=== PATIENT | male | born 1965 | race Hispanic/Latino ===

== ENCOUNTER 2018-09-28 17:04 | Inpatient (IN) | payer OTHER | END 2018-10-08 16:30 | disposition home or self-care (01) | LOC: EDH 17:04 → 4AH 09-29 04:06 → 3DH 10-05 18:31 → EDHIP 20:10 | PROC: 4A023N7 Measurement of Cardiac Sampling and Pressure, Left Heart, Percutaneous Approach (ICD-10-PCS; principal; ~2018-09-28) | PROC: B2111ZZ Fluoroscopy of Multiple Coronary Arteries using Low Osmolar Contrast (ICD-10-PCS; ~2018-09-28) | PROC: B2151ZZ Fluoroscopy of Left Heart using Low Osmolar Contrast (ICD-10-PCS; ~2018-09-28) | PROC: B4181ZZ Fluoroscopy of Bilateral Renal Arteries using Low Osmolar Contrast (ICD-10-PCS; ~2018-09-28) | DX: I50.43 Acute on chronic combined systolic (congestive) and diastolic (congestive) heart failure (principal); J18.9 Pneumonia, unspecified organism; I16.0 Hypertensive urgency; E11.65 Type 2 diabetes mellitus with hyperglycemia; I11.0 Hypertensive heart disease with heart failure; J98.01 Acute bronchospasm; E66.01 Morbid (severe) obesity due to excess calories ==

== ENCOUNTER 2020-09-19 12:23 | Inpatient (IN) | payer OTHER ==
[~2020-09-19] VITALS: Ht 188 cm; Wt 147.2 kg
[~2020-09-19 12:23] MED LIST: AMLO5TAB4 PO; ASPI-1005 PO; ATOR20TA65 PO; FURO40TA7 PO; GLIP5TAB11 PO; LEVO500T2 PO; LOSA100T2 PO; METF-444 PO; METO50 PO
[2020-09-19 13:15] LABS: BASOPHILS % (AUTO) 0.6 % (0.0-5.0); EOSINOPHILS % (AUTO) 3.1 % (0.0-8.0); HEMATOCRIT 39.8 % (42-54); LYMPHOCYTES % (AUTO) 22.3 % (21.0-51.0); MEAN CORPUSCULAR HEMOGLOBIN 20.6 pg (27.0-33.0); MEAN CORPUSCULAR HGB CONC 27.1 g/dL (32.0-36.0); MEAN CORPUSCULAR VOLUME 75.8 fL (79-99); MONOCYTES % (AUTO) 12.5 % (3.0-13.0); NEUTROPHILS % (AUTO) 61.2 % (40.0-77.0); PLATELET COUNT (AUTO) 264 K/uL (130-400); RED BLOOD CELL COUNT(AUTO) 5.25 MIL/uL (4.50-6.20); WHITE BLOOD COUNT (AUTO) 6.2 K/uL (4.8-10.8)
[2020-09-19 13:26] LABS: CREATININE 1.5 mg/dL (0.5-1.5); INR 1.21 (0.85-1.15); POTASSIUM 4.1 mmol/L (3.5-5.1)
[2020-09-19 13:28] LABS: PARTIAL THROMBOPLASTIN TIME 29.2 SEC (26.3-35.5)
[2020-09-19 13:31] LABS: ALBUMIN 2.8 g/dL (3.5-5.0); BILIRUBIN,TOTAL 0.6 mg/dL (0.2-1.0)
[2020-09-19] MEDS ORDERED: DEXTROSE 50%-WATER 50 ML DISP.SYRIN IV ONE ×3 (13:44→16:55)
[2020-09-19 13:46] LABS: B-TYPE NATRIURETIC PEPTIDE 773 pg/mL (0-100)
[2020-09-19] MEDS ORDERED: DEXTROSE 10%-WATER 1,000 ML IV ONE (14:50)
[2020-09-19] MEDS ORDERED: LIDOCAINE HCL-MPF 1% 2ML VIAL IV PRN ×2 (15:15)
[2020-09-19] MEDS ORDERED: GLUCAGON 1MG KIT 1 MG ML IM PRN (15:15)
[2020-09-19] MEDS ORDERED: POTASSIUM CHLORIDE 20 MEQ ERTAB PO PRN (15:15)
[2020-09-19] MEDS ORDERED: POTASSIUM CHLORIDE 10% ELIXIR 20 MEQ/15 ML UDCUP PO PRN ×2 (15:15)
[2020-09-19] MEDS ORDERED: POTASSIUM CHLORIDE 10MEQ/100ML 100 ML IV PRN (15:15)
[2020-09-19] MEDS ORDERED: DEXTROSE 50%-WATER 50 ML DISP.SYRIN IV PRN (15:15)
[2020-09-19] MEDS ORDERED: POTASSIUM CHLORIDE 20MEQ/100ML 100 ML IV PRN (15:15)
[2020-09-19] MEDS: DEXTROSE 10%-WATER 1,000 ML IV SCH (15:15)
[2020-09-19] MEDS: FUROSEMIDE 10 MG/ML 4ML VIAL IV SCH ×2 (15:15→23:13)
[2020-09-19] MEDS ORDERED: FUROSEMIDE 10 MG/ML 4ML VIAL ONE (15:33)
[2020-09-19] MEDS: LOSARTAN 50 MG TABLET PO SCH (16:39)
[2020-09-19 18:56] VITALS: BP 169/87
[2020-09-19] MEDS ORDERED: DOBUTAMINE HCL 1,000 MG in DEXTROSE 5%-WATER 250 ML IV SCH (20:00)
[2020-09-20] VITALS (7 sets, daily range): BP systolic 133–193; BP diastolic 62–119
[2020-09-20 01:31] LABS: MEAN CORPUSCULAR HEMOGLOBIN 20.7 pg (27.0-33.0); MEAN CORPUSCULAR HGB CONC 27.8 g/dL (32.0-36.0); MEAN CORPUSCULAR VOLUME 74.8 fL (79-99); RED BLOOD CELL COUNT(AUTO) 5.35 MIL/uL (4.50-6.20); RED CELL DISTRIBUTION WIDTH 19.1 % (11.0-15.5); WHITE BLOOD COUNT (AUTO) 7.6 K/uL (4.8-10.8)
[2020-09-20 01:46] LABS: ALBUMIN 2.9 g/dL (3.5-5.0); BILIRUBIN,TOTAL 0.7 mg/dL (0.2-1.0); CREATININE 1.4 mg/dL (0.5-1.5); MAGNESIUM 1.7 mg/dL (1.80-2.40); PHOSPHORUS 5.4 mg/dL (2.5-4.9); POTASSIUM 3.8 mmol/L (3.5-5.1); TOTAL PROTEIN, SERUM 7.3 g/dL (6.0-8.3)
[2020-09-20] MEDS ORDERED: POTA-9 PO (02:08)
[2020-09-20] MEDS ORDERED: DOXY25TA55 PO (02:08)
[2020-09-20] MEDS ORDERED: METO100T14 PO (02:08)
[2020-09-20] MEDS ORDERED: CLON0.1T PO (02:08)
[2020-09-20] MEDS: DEXTROSE 10%-WATER 1,000 ML IV SCH (03:43)
[2020-09-20] MEDS: FUROSEMIDE 10 MG/ML 4ML VIAL IV SCH (06:17)
[2020-09-20] MEDS: ENOXAPARIN SODIUM 40 MG/0.4 ML SYRINGE SQ SCH (09:18)
[2020-09-20] MEDS: LOSARTAN 50 MG TABLET PO SCH (09:18)
[2020-09-20] MEDS: ASPIRIN 81MG TAB.CHEW PO SCH (09:18)
[2020-09-20] MEDS: POTASSIUM CHLORIDE 20 MEQ ERTAB PO PRN (09:18)
[2020-09-20] MEDS ORDERED: MAGNESIUM 2GM PREMIX 50ML 50 ML IV PRN (09:30)
[2020-09-20] MEDS ORDERED: LOSARTAN 50 MG TABLET ONE (12:44)
[2020-09-20] MEDS ORDERED: LOSARTAN 50 MG TABLET PO SCH (12:45)
[2020-09-20] MEDS: ATORVASTATIN CALCIUM 20 MG TABLET PO SCH (20:01)
[2020-09-21] MEDS: FUROSEMIDE 10 MG/ML 4ML VIAL IV SCH ×3 (00:36→15:02)
[2020-09-21 03:35] VITALS: BP 158/81
[2020-09-21 06:26] LABS: CREATININE 1.1 mg/dL (0.5-1.5); MAGNESIUM 1.9 mg/dL (1.80-2.40); POTASSIUM 3.8 mmol/L (3.5-5.1)
[2020-09-21 08:00] VITALS: BP 174/79
[2020-09-21] MEDS: ENOXAPARIN SODIUM 40 MG/0.4 ML SYRINGE SQ SCH (08:35)
[2020-09-21] MEDS: LOSARTAN 50 MG TABLET PO SCH (08:35)
[2020-09-21] MEDS: ASPIRIN 81MG TAB.CHEW PO SCH (08:35)
[2020-09-21] MEDS ORDERED: LOSARTAN 50 MG TABLET PO SCH (09:00)
[2020-09-21] MEDS: POTASSIUM CHLORIDE 20 MEQ ERTAB PO PRN ×2 (10:05→15:02)
[2020-09-21 11:27] VITALS: BP 158/74
[2020-09-21 16:00] VITALS: BP 167/93
[2020-09-21 19:41] VITALS: BP 160/86
[2020-09-21] MEDS: ATORVASTATIN CALCIUM 20 MG TABLET PO SCH (19:44)
[2020-09-21 23:53] VITALS: BP 160/93
[2020-09-22] MEDS: FUROSEMIDE 10 MG/ML 4ML VIAL IV SCH ×4 (00:14→20:28)
[2020-09-22 04:07] VITALS: BP 156/87
[2020-09-22 05:09] LABS: CREATININE 1.1 mg/dL (0.5-1.5)
[2020-09-22 08:00] VITALS: BP 168/97
[2020-09-22] MEDS: ASPIRIN 81MG TAB.CHEW PO SCH ×2 (09:59→20:24)
[2020-09-22] MEDS: CARVEDILOL 6.25 MG TABLET PO SCH ×2 (09:59→20:26)
[2020-09-22] MEDS: LOSARTAN 50 MG TABLET PO SCH ×2 (09:59→20:25)
[2020-09-22] MEDS: ENOXAPARIN SODIUM 40 MG/0.4 ML SYRINGE SQ SCH (10:00)
[2020-09-22 12:07] VITALS: BP 160/94
[2020-09-22 16:00] VITALS: BP 164/111
[2020-09-22 20:11] VITALS: BP 183/92
[2020-09-22] MEDS: ATORVASTATIN CALCIUM 20 MG TABLET PO SCH (20:24)
[2020-09-22 23:26] VITALS: BP_SYST 155; BP_SYST 92; BP_DIAS 56; BP_DIAS 80
[2020-09-23 03:49] LABS: HEMATOCRIT 41.1 % (42-54); MEAN CORPUSCULAR HEMOGLOBIN 20.5 pg (27.0-33.0); MEAN CORPUSCULAR VOLUME 70.7 fL (79-99); RED BLOOD CELL COUNT(AUTO) 5.81 MIL/uL (4.50-6.20); RED CELL DISTRIBUTION WIDTH 19.6 % (11.0-15.5); WHITE BLOOD COUNT (AUTO) 6.5 K/uL (4.8-10.8)
[2020-09-23 03:55] VITALS: BP 185/96
[2020-09-23 03:55] LABS: CREATININE 1.2 mg/dL (0.5-1.5); POTASSIUM 3.7 mmol/L (3.5-5.1)
[2020-09-23] MEDS: FUROSEMIDE 10 MG/ML 4ML VIAL IV SCH (06:02)
[2020-09-23 07:36] VITALS: BP 182/92
[2020-09-23] MEDS: LOSARTAN 50 MG TABLET PO SCH (08:34)
[2020-09-23] MEDS: ENOXAPARIN SODIUM 40 MG/0.4 ML SYRINGE SQ SCH (08:36)
[2020-09-23] MEDS: FUROSEMIDE 40 MG TABLET PO SCH ×2 (08:36→16:31)
[2020-09-23] MEDS ORDERED: CLONIDINE HCL 0.1 MG TABLET PO SCH (09:00)
[2020-09-23] MEDS ORDERED: CARVEDILOL 6.25 MG TABLET PO SCH (09:00)
[2020-09-23 11:44] VITALS: BP 127/67
[2020-09-23 15:47] VITALS: BP 154/81
[2020-09-23] MEDS ORDERED: CARV6.2579 PO (16:03)
[2020-09-23] MEDS ORDERED: FURO40TA7 PO (16:03)
== END 2020-09-23 18:30 | disposition home or self-care (01) | DRG 291 ==
LOC: EDH 12:23 → EDHIP 15:03 → 4DH 18:34
PROVIDERS: ADMIT Internal Medicine Critical Care Medicine; ATTEND Internal Medicine Critical Care Medicine
DX: I11.0 Hypertensive heart disease with heart failure (principal); J96.91 Respiratory failure, unspecified with hypoxia; N17.9 Acute kidney failure, unspecified; R18.8 Other ascites; E66.2 Morbid (severe) obesity with alveolar hypoventilation; Z68.41 Body mass index [BMI] 40.0-44.9, adult; I31.3 Pericardial effusion (noninflammatory); I50.43 Acute on chronic combined systolic (congestive) and diastolic (congestive) heart failure; I42.0 Dilated cardiomyopathy; E11.649 Type 2 diabetes mellitus with hypoglycemia without coma; E78.5 Hyperlipidemia, unspecified; Z20.822 Contact with and (suspected) exposure to COVID-19; Z72.0 Tobacco use; Z91.19 Patient's noncompliance with other medical treatment and regimen; Z79.899 Other long term (current) drug therapy
CPT/HCPCS: 36415; 71045; 74177; 80048; 80053; 82010; 82550; 82948; 83735; 83880; 84100; 84132; 84484; 85025; 85027; 85378; 85610; 85730; 87426; 93005; 93306; 93356; 93970; 94760; G0378; J1650; J1940; J3475; J3490; J7070; U0003

== ENCOUNTER → 2020-10-23 | Outpatient (CLI) | payer OTHER ==
[~2020-10-23] MED LIST changes: -AMLO5TAB4 PO; +CARV6.2579 PO; +CLON0.1T PO; +DOXY25TA55 PO; -LEVO500T2 PO; -METO50 PO; +POTA-9 PO
== END | disposition home or self-care (01) ==
LOC: SHCH 15:39
PROVIDERS: ATTEND Internal Medicine Cardiovascular Disease
DX: I42.0 Dilated cardiomyopathy (principal)
CPT/HCPCS: 93306; 93356

== ENCOUNTER → 2021-03-24 | Outpatient (CLI) | payer OTHER | END | disposition home or self-care (01) | LOC: SLP 20:34 | PROVIDERS: ATTEND Internal Medicine Cardiovascular Disease | DX: G47.33 Obstructive sleep apnea (adult) (pediatric) (principal); I10 Essential (primary) hypertension; E11.9 Type 2 diabetes mellitus without complications; R35.1 Nocturia | CPT/HCPCS: 95810 ==

== ENCOUNTER → 2021-06-10 | Outpatient (CLI) | payer OTHER | END | disposition home or self-care (01) | LOC: SHCH 13:30 | PROVIDERS: ATTEND Internal Medicine Cardiovascular Disease | DX: I87.2 Venous insufficiency (chronic) (peripheral) (principal) | CPT/HCPCS: 93970 ==